=== PATIENT | male | born 1990 | race Caucasian/White ===

== ENCOUNTER 2020-01-22 15:44 | Emergency (ER) | payer SELFPAY ==
[~2020-01-22] VITALS: Ht 165.1 cm; Wt 81.6 kg
== END 2020-01-22 17:35 | disposition home or self-care (01) ==
LOC: ED 15:44
DX: S93.412A Sprain of calcaneofibular ligament of left ankle, initial encounter (principal); W10.9XXA Fall (on) (from) unspecified stairs and steps, initial encounter; Y93.89 Activity, other specified; Y92.89 Other specified places as the place of occurrence of the external cause; Y99.8 Other external cause status

== ENCOUNTER → 2022-12-17 | Outpatient (CLI) | payer BC ==
[2022-12-19 16:07] LABS: CODFISH, IGE <0.10 kU/L (Class 0); EGG WHITE, IGE <0.10 kU/L (Class 0); MILK (COW), IGE 0.11 kU/L (Class 0/I); PEANUT, IGE 0.69 kU/L (Class II); SOYBEAN, IGE 0.42 kU/L (Class I); WHEAT, IGE 0.51 kU/L (Class I)
[2022-12-19 20:07] LABS: ALTERNARIA ALTERNATA, IGE <0.10 kU/L (Class 0); AMERICAN ELM, IGE 0.67 kU/L (Class II); ASPERGILLUS FUMIGATU, IGE <0.10 kU/L (Class 0); BERMUDA GRASS, IGE 0.88 kU/L (Class II); BIRCH, COMMON SILVER IGE 0.39 kU/L (Class I); CLADOSPORIUM HERBARU, IGE <0.10 kU/L (Class 0); D FARINAE MITE 0.17 kU/L (Class 0/I); D PTERONYSSINUS <0.10 kU/L (Class 0); DOG DANDER, IGE <0.10 kU/L (Class 0); MAPLE LEAF SYCAMORE, IGE 0.69 kU/L (Class II); MAPLE/BOX ELDER, IGE 0.63 kU/L (Class II); MOUSE URINE IGE <0.10 kU/L (Class 0); PENICILLIUM CHRYSOGENUM, IGE <0.10 kU/L (Class 0); ROUGH PIGWEED, IGE 0.53 kU/L (Class I); SHEEP SORREL (DOCK), IGE 0.65 kU/L (Class II); WALNUT TREE, IGE 0.76 kU/L (Class II); WHITE ASH, IGE 0.72 kU/L (Class II); WHITE MULBERRY, IGE 0.43 kU/L (Class I); WHITE OAK, IGE 0.67 kU/L (Class II)
== END | disposition home or self-care (01) ==
LOC: CT 15:30 → LAB 16:03 → CT 12-25 13:00
PROVIDERS: ATTEND Specialist
DX: J34.2 Deviated nasal septum (principal); J30.9 Allergic rhinitis, unspecified; J32.3 Chronic sphenoidal sinusitis; J32.0 Chronic maxillary sinusitis

== ENCOUNTER → 2023-08-19 | Outpatient (CLI) | payer BC | END | disposition home or self-care (01) | LOC: CT 08-02 09:00 | PROVIDERS: ATTEND Specialist | DX: J32.4 Chronic pansinusitis (principal) ==

== ENCOUNTER → 2023-12-17 | Outpatient (CLI) | payer BC ==
[2023-12-17 10:37] LABS: BASO % 0.7 % (0.0-1.0); EOS # 0.3 10*3/uL (0.0-0.4); EOS % 5.2 % (1.0-4.0); HEMATOCRIT 45.4 % (42.0-52.0); LYMPH # 1.5 10*3/uL (1.3-4.4); LYMPH % 25.2 % (27.0-41.0); MEAN CELL VOLUME 87.8 fl (80.0-94.0); MEAN CORPUSCULAR HGB 29.4 pg (27.0-31.0); MEAN CORPUSCULAR HGB CONC 33.5 g/dl (33.0-37.0); MEAN PLATELET VOLUME 8.5 fl (9.6-12.3); MONO # 0.6 10*3/uL (0.1-1.0); NEUT # 3.7 10*3/uL (2.3-7.9); NEUT % 59.7 % (47.0-73.0); PLATELET COUNT AUTOMATED 204 10*3/uL (130-400); RED BLOOD COUNT 5.17 10*6/uL (4.50-5.90); RED CELL DISTRI WIDTH 12.4 % (0-14.5); WHITE BLOOD COUNT 6.1 10*3/uL (4.8-10.8)
[2023-12-17 11:12] LABS: ALKALINE PHOSPHATASE 75 U/L (46-116); BUN 11 mg/dl (9-23); CHLORIDE 105 mmol/L (98-107); CHOLESTEROL 219 mg/dL (<200); LDL CHOLESTEROL 140 mg/dL (9-159); POTASSIUM 4.1 mmol/L (3.4-5.1); SGPT/ALT 26 U/L (5-49); T3 UPTAKE 23.8 % (22.4-36.7); THYROXINE (T4) TOTAL 6.1 ug/dl (4.5-10.9); TOTAL PROTEIN 7.2 gm/dL (6.0-8.0); TRIGLYCERIDES 66 mg/dl (<150); VITAMIN D, 25-HYDROXY 19.2 ng/mL (30-100)
== END | disposition home or self-care (01) ==
LOC: LAB 10:18
PROVIDERS: ATTEND Nurse Practitioner Psychiatric/Mental Health
DX: Z51.81 Encounter for therapeutic drug level monitoring (principal); Z79.899 Other long term (current) drug therapy

== ENCOUNTER → 2024-11-23 | Outpatient (CLI) | payer BC ==
[2024-11-23 12:40] LABS: BASO # 0.1 10*3/uL (0.0-0.1); BASO % 0.8 % (0.0-1.0); EOS # 0.4 10*3/uL (0.0-0.4); EOS % 5.7 % (1.0-4.0); HEMATOCRIT 47.4 % (42.0-52.0); MEAN CELL VOLUME 87.1 fl (80.0-94.0); MEAN CORPUSCULAR HGB 29.2 pg (27.0-31.0); MEAN CORPUSCULAR HGB CONC 33.5 g/dl (33.0-37.0); MEAN PLATELET VOLUME 8.6 fl (9.6-12.3); MONO # 0.6 10*3/uL (0.1-1.0); MONO % 8.2 % (3.0-9.0); NEUT # 4.3 10*3/uL (2.3-7.9); NEUT % 58.4 % (47.0-73.0); PLATELET COUNT AUTOMATED 197 10*3/uL (130-400); RED BLOOD COUNT 5.44 10*6/uL (4.50-5.90); RED CELL DISTRI WIDTH 12.4 % (0-14.5); WHITE BLOOD COUNT 7.3 10*3/uL (4.8-10.8)
[2024-11-23 13:46] LABS: ALKALINE PHOSPHATASE 88 U/L (46-116); BUN 12 mg/dl (9-23); CHLORIDE 104 mmol/L (98-107); CHOLESTEROL 265 mg/dL (<200); LDL CHOLESTEROL 182 mg/dL (9-159); POTASSIUM 4.4 mmol/L (3.4-5.1); SGPT/ALT 64 U/L (5-49); TOTAL PROTEIN 7.4 gm/dL (6.0-8.0); TRIGLYCERIDES 94 mg/dl (<150)
[2024-11-23 14:02] LABS: T3 UPTAKE 28.8 % (22.4-36.7); THYROXINE (T4) TOTAL 5.9 ug/dl (4.5-10.9)
== END | disposition home or self-care (01) ==
LOC: LAB 12:16
PROVIDERS: ATTEND Nurse Practitioner Psychiatric/Mental Health
DX: Z51.81 Encounter for therapeutic drug level monitoring (principal); Z79.899 Other long term (current) drug therapy